=== PATIENT | male | born 1950 | race Caucasian/White ===

== ENCOUNTER 2016-04-28 10:34 | Emergency (ER) | payer OTHER, MEDICARE ==
--- NOTE | 2016-04-28 12:34 | ED CRITICAL CARE ---
History of Present Illness General Chief Complaint: Cardiopulmonary Resuscitation Stated Complaint: CPR Source: family, old records, EMS Exam Limitations: clinical condition Vital Signs & Intake/Output Vital Signs & Intake/Output none Allergies Uncoded Allergies: NKDA (04/28/16) Triage Note: PER EMS CO SOB AND BACK PAIN. COLLAPSED IN FRONT OF FAMILY CPR RIGHT AWAY. UPON MEDIC ARRIVAL NO RHYTHM, CPR 4 EPI ENROUTE, ETCO2 30 AFTER INTUBATION IN ED 18. RESP AT BEDSIDE. GOOD BREATH SOUNDS #8 ETT. Triage Nurses Notes Reviewed? yes Onset: Just prior to arrival Duration: minute(s):, constant, continues in ED Timing: recent history Injury Environment: home Severity: severe Pain Location: chest, back Associated Symptoms: chest pain, nausea/vomiting, trouble walking HPI: Several days prior to admission family reports patient complained of back pain visited chiropractor for treatments. The morning of admission he complained of nausea malaise fatigue and developed substernal chest pain and collapsed to the floor while walking. He was unresponsive EMS called family started CPR. EMS provided ACLS protocol for asystole and PEA. There is no reported fever chills vomiting diarrhea abdominal pain dysuria rash headache bleeding. Past History Travel History Traveled to [place] past 21 day No Medical History Any Pertinent Medical History? see below for history Neurological: NONE EENT: glaucoma Cardiovascular: NONE Respiratory: NONE Gastrointestinal: NONE Hepatic: NONE Renal: NONE Musculoskeletal: NONE Psychiatric: NONE Endocrine: NONE Blood Disorders: Hodgkins Surgical History Surgical History: non-contributory Psychosocial History What is your primary language Lithuanian Tobacco Use: UN Family History Hx Contributory? No Review of Systems Review of Systems Constitutional: Reports: see HPI, weakness. Eyes: Reports: no symptoms. Ears, Nose, Throat, Mouth: Reports: no symptoms. Respiratory: Reports: no symptoms. Cardiovascular: Reports: no symptoms. Gastrointestinal/Abdominal: Reports: see HPI, nausea. Genitourinary: Reports: no symptoms. Musculoskeletal: Reports: see HPI, back pain. Skin: Reports: no symptoms. Neurological/Psychological: Reports: no symptoms. All Other Systems: Reviewed and Negative Physical Exam Physical Exam General Appearance: severe distress, obese Head: atraumatic, normal appearance Eyes: Bilateral: other (pupils fixed and dilated). Ears, Nose, Throat, Mouth: moist mucous membrane Neck: normal inspection Respiratory: mechanical breath sounds Blood noted in ET tube upon arrival Cardiovascular: no heart sounds Peripheral Pulses: 0 carotid (R), 0 carotid (L), 0 femoral (R), 0 femoral (L) Gastrointestinal: soft, distention Back: normal inspection Extremities: no ligament instability Neurologic/Psych: disoriented x 3, motor/sensory deficits Skin: pallor Core Measures ACS in differential dx? No CVA/TIA Diagnosis: No Severe Sepsis Present: No Septic Shock Present: No Progress Differential Diagnoses I considered the following diagnoses in my evaluation of the patient: asystole PEA aortic dissection Plan of Care: pronounced 1047 AM Initial ED EKG: none Rhythm Strip: PEA Departure Departure Time of Disposition: 1047 Disposition: Condition: Stable Clinical Impression Primary Impression: Cardiac asystole Secondary Impressions: Aortic dissection Referrals: PATIENT HAS NO PRIMARY CARE DR (PCP/Family) Departure Forms: General Discharge Information Comments Family notified package completed ME notified Critical Care Note Critical Care Note Critical Care Time: 30-74 min (35)
== END 2016-04-28 10:47 | disposition expired ==
LOC: ERH 10:34
DX: I71.00 Dissection of unspecified site of aorta (principal); I46.9 Cardiac arrest, cause unspecified; R07.89 Other chest pain
CPT/HCPCS: 1387; 94799